=== PATIENT | female | born 1935 | race Caucasian/White ===

== ENCOUNTER 2018-12-26 13:17 | Emergency (ER) | payer OTHER, BC ==
[~2018-12-26] VITALS: Ht 162.6 cm; Wt 68.0 kg
[2018-12-26 13:58] LABS: ABSOLUTE NEUTROPHILS 3.4 thou/uL (1.4-8.2); BASOPHILS 0.7 % (0.0-2.0); HEMATOCRIT 39.3 % (37.0-47.0); HEMOGLOBIN 12.6 gm/dL (12.0-15.0); LYMPHOCYTES 14.2 % (24.0-44.0); MCH 26.7 pg (26.0-34.0); MCHC 32.2 g/dL (28.0-37.0); MCV 82.9 fL (80.0-100.0); MONOCYTES 6.5 % (1.0-8.0); PLATELET COUNT 125 thou/uL (150-400); POLYS 76.6 % (36.0-66.0); RBC 4.74 mil/uL (4.20-5.00); RDW 15.2 % (10.5-14.5); WBC 4.5 thou/uL (4.0-11.0)
[2018-12-26 14:07] LABS: CALCIUM 9.8 mg/dL (8.5-10.1); POTASSIUM 3.7 mmol/L (3.5-5.1)
[2018-12-26 14:13] LABS: ALBUMIN 3.8 g/dL (3.4-5.0); TOTAL BILIRUBIN 0.5 mg/dL (<0.1-1.0); TOTAL PROTEIN 7.5 g/dL (6.4-8.2)
[2018-12-26 14:14] LABS: INR 1.1; PROTIME 11.5 Seconds (9.3-11.4)
[2018-12-26] MEDS ORDERED: KEFLEX500 M1 PO (15:28)
[2018-12-26] MEDS ORDERED: TRAMADOL 50 MG50 MG PO (15:28)
[2018-12-26 16:18] VITALS: BP 126/60
[2018-12-26 16:49] LABS: URINE BILIRUBIN NEGATIVE (Negative); URINE BLOOD TRACE (Negative); URINE CLARITY CLEAR; URINE COLOR YELLOW; URINE GLUCOSE-RANDOM* NEGATIVE (Negative); URINE KETONES TRACE (Negative); URINE LEUKOCYTES-REFLEX TRACE (Negative); URINE NITRITE-REFLEX NEGATIVE (Negative); URINE PROTEIN (DIPSTICK) NEGATIVE (Negative); URINE UROBILINOGEN 0.2 E.U./dl (0.2-1.0)
[2018-12-26 17:00] LABS: AMP/METHAMP Negative (Negative); BARBITURATES Negative (Negative); BENZODIAZEPINES Negative (Negative); COCAINE Negative (Negative); METHADONE Negative (Negative); OPIATES Negative (Negative); PCP Negative (Negative)
== END 2018-12-26 16:18 | disposition home or self-care (01) ==
LOC: ER 13:17
PROVIDERS: Emergency Medicine
DX: S01.111A Laceration without foreign body of right eyelid and periocular area, initial encounter (principal); S80.211A Abrasion, right knee, initial encounter; S09.90XA Unspecified injury of head, initial encounter; I10 Essential (primary) hypertension; Z79.01 Long term (current) use of anticoagulants; W01.0XXA Fall on same level from slipping, tripping and stumbling without subsequent striking against object, initial encounter; Y93.89 Activity, other specified; Y92.89 Other specified places as the place of occurrence of the external cause; Y99.8 Other external cause status

== ENCOUNTER 2019-01-01 14:17 | Emergency (ER) | payer OTHER, BC ==
[~2019-01-01] VITALS: Ht 162.6 cm; Wt 68.5 kg
[~2019-01-01 14:17] MED LIST: KEFLEX500 M1 PO; TRAMADOL 50 MG50 MG PO
[2019-01-01] MEDS ORDERED: TRIAMTERENE-HC1 EAC3 PO (14:25)
[2019-01-01] MEDS ORDERED: ELIQUIS5 MG PO (14:26)
[2019-01-01] MEDS ORDERED: ATORVASTATIN CA20 MG PO (14:26)
[2019-01-01] MEDS ORDERED: AMLODIPINE BESY10 MG PO (14:26)
[2019-01-01] MEDS ORDERED: KLOR-CON 10 ER10 MEQ PO (14:27)
== END 2019-01-01 14:40 | disposition home or self-care (01) ==
LOC: ER 14:17
DX: S01.111D Laceration without foreign body of right eyelid and periocular area, subsequent encounter (principal); I10 Essential (primary) hypertension; X58.XXXD Exposure to other specified factors, subsequent encounter

== ENCOUNTER 2019-03-13 10:04 | Emergency (ER) | payer OTHER, BC ==
[~2019-03-13] VITALS: Ht 162.6 cm; Wt 68.0 kg
[~2019-03-13 10:04] MED LIST changes: +AMLODIPINE BESY10 MG PO; +ATORVASTATIN CA20 MG PO; +ELIQUIS5 MG PO; +KLOR-CON 10 ER10 MEQ PO; +TRIAMTERENE-HC1 EAC3 PO
[2019-03-13 11:04] LABS: URINE BILIRUBIN NEGATIVE (Negative); URINE BLOOD NEGATIVE (Negative); URINE CLARITY SL CLOUDY; URINE COLOR YELLOW; URINE GLUCOSE-RANDOM* NEGATIVE (Negative); URINE KETONES NEGATIVE (Negative); URINE NITRITE-REFLEX NEGATIVE (Negative); URINE PROTEIN (DIPSTICK) NEGATIVE (Negative); URINE SPECIFIC GRAVITY 1.015 (1.005-1.035); URINE UROBILINOGEN 0.2 E.U./dl (0.2-1.0)
[2019-03-13 11:06] LABS: URINE LEUKOCYTES-REFLEX 2+ (Negative)
[2019-03-13 11:21] LABS: SQUAMOUS >10 Many /LPF (0-3)
[2019-03-13 11:22] LABS: AMORPHOUS URATES Few /LPF (None Seen); BACTERIA-REFLEX 1-9 Few /HPF (None Seen); CASTS None Seen /LPF (None Seen); URINE RBC None Seen /HPF (0-2)
[2019-03-13 11:23] LABS: TRANSITIONAL EPITHEL CELL 0-3 Few /LPF (None Seen)
[2019-03-13 12:19] LABS: ABSOLUTE NEUTROPHILS 2.8 thou/uL (1.4-8.2); BASOPHILS 0.6 % (0.0-2.0); EOSINOPHILS 1.9 % (0.0-3.0); HEMATOCRIT 39.7 % (37.0-47.0); HEMOGLOBIN 12.7 gm/dL (12.0-15.0); LYMPHOCYTES 18.1 % (24.0-44.0); MCH 26.8 pg (26.0-34.0); MCHC 32.1 g/dL (28.0-37.0); MCV 83.4 fL (80.0-100.0); MONOCYTES 6.4 % (1.0-8.0); PLATELET COUNT 122 thou/uL (150-400); RBC 4.76 mil/uL (4.20-5.00); RDW 15.1 % (10.5-14.5); WBC 3.9 thou/uL (4.0-11.0)
[2019-03-13 12:29] LABS: CALCIUM 9.1 mg/dL (8.5-10.1); CREATININE 0.9 mg/dL (0.6-1.0); POTASSIUM 3.2 mmol/L (3.5-5.1)
[2019-03-13 12:37] LABS: ALBUMIN 3.8 g/dL (3.4-5.0); TOTAL BILIRUBIN 0.5 mg/dL (<0.1-1.0)
[2019-03-13] MEDS ORDERED: LEVAQUIN 750 M750 MG PO (12:53)
[2019-03-13 13:18] VITALS: BP 171/69
--- NOTE | 2019-03-14 07:56 | EKG ---
[address] [place] [address] ELECTROCARDIOGRAM REPORT Name: AMY SOLIS Room #: DEP [facility]#: [id number] Admission: 03/13/19 Attend Phys: Discharge: 03/13/19 Date of : 33 Report #: [id number] THIS REPORT FOR: //name// [facility] ED Test Date: 2019-03-13 Test Time: 11:10:17 Pat Name: AMY SOLIS Department: Room: Gender: F Circulating Nurse: anna : 1935 Requested By: Clarence Aden Order Number: [id number] MD: Bo Bazan Measurements Intervals [place] Rate: 66 P: 49 DC: 178 QRS: 8 QRSD: 101 T: 79 QT: 412 QTc: 432 Interpretive Statements Sinus rhythm Nonspecific T abnrm Compared to ECG 12/24/1993 16:39:00 Prolonged QT interval no longer present Electronically Signed On 03-14-2019 7:55:34 [employer] by Bo Bazan [email or web address] <ELECTRONICALLY SIGNED> By: Bo Bazan MD, [facility] 03/14/19 [id number] 1110 Bo Bazan MD, FACC /EPI
== END 2019-03-13 13:23 | disposition home or self-care (01) ==
LOC: ER 10:04
PROVIDERS: Emergency Medicine; Nurse Practitioner Family
DX: J18.9 Pneumonia, unspecified organism (principal); E87.6 Hypokalemia; N39.0 Urinary tract infection, site not specified; I10 Essential (primary) hypertension